=== PATIENT | female | born 1985 | race Caucasian/White ===

== ENCOUNTER 2023-04-17 12:23 | Inpatient (IN) | payer OTHER ==
[~2023-04-17] VITALS: Ht 165.1 cm; Wt 72.7 kg
[2023-04-17] VITALS (20 sets, daily range): BP systolic 105–144; BP diastolic 62–98; TEMP 97.1–98.3; O2SAT 99–100
[2023-04-17] MEDS: PRENATAL VITAMINS CHEWABLE TABLET PO SCH (09:00)
[2023-04-17] MEDS: DOCUSATE SODIUM 100MG CAPSULE PO SCH ×2 (09:00→20:41)
[2023-04-17] MEDS ORDERED: ZOLO50TA PO (12:50)
[2023-04-17] MEDS ORDERED: ACETAMINOPHEN 650MG SUPP PR ONE (12:55)
[2023-04-17] MEDS ORDERED: ceFAZolin SOD 2 GM in IV 1 EA IV ONE (12:55)
[2023-04-17] MEDS ORDERED: BICITRA 30ML SOLN UDC PO ONE (12:55)
[2023-04-17] MEDS: LR 1,000 ML IV SCH ×2 (12:55→21:37)
[2023-04-17] MEDS ORDERED: AZITHROMYCIN INJ 500 MG, VIAL MATE ADAPTER 1 EACH in NS 250 ML IV ONE (12:55)
[2023-04-17] MEDS ORDERED: ceFAZolin 2 GM/D5W 50 ML IV BAG As Ordered ONE (12:58)
[2023-04-17] MEDS ORDERED: AZITHROMYCIN INJ 500MG VIAL As Ordered ONE (12:59)
[2023-04-17] MEDS ORDERED: BICITRA 30ML SOLN UDC As Ordered ONE (12:59)
[2023-04-17 13:00] LABS: HEMATOCRIT 33.8 % (36.0-47.0); HEMOGLOBIN 11.9 g/dl (12.0-15.5); MEAN CORPUSCULAR HEMOGLOBIN 33.1 pg (27.0-33.0); MEAN CORPUSCULAR HGB CONC 35.2 g/dl (32.0-36.5); MEAN CORPUSCULAR VOLUME 93.9 fl (80.0-96.0); WHITE BLOOD COUNT 22.1 10^3/uL (4.0-10.0)
[2023-04-17 13:27] LABS: PLATELET COUNT, AUTOMATED 56 10^3/uL (150-450)
[2023-04-17 13:35] LABS: ALBUMIN 2.8 G/DL (3.2-5.2); BILIRUBIN,TOTAL 1.5 MG/DL (0.3-1.2); CALCIUM LEVEL 10.2 MG/DL (8.5-10.1); CREATININE FOR GFR 1.23 MG/DL (0.55-1.30); GLOMERULAR FILTRATION RATE 52.9 (>60); LDH LACTATE DEHYDROGENASE 694 U/L (120-246); POTASSIUM SERUM 4.5 MMOL/L (3.5-5.1); TOTAL PROTEIN 5.5 G/DL (5.7-8.2)
[2023-04-17] MEDS ORDERED: ROCURONIUM BROMIDE 50MG/5ML VIAL As Ordered ONE (13:35)
[2023-04-17] MEDS ORDERED: ONDANSETRON 4MG 2ML VIAL As Ordered ONE (13:35)
[2023-04-17] MEDS ORDERED: KETOROLAC 60MG 2ML VIAL As Ordered ONE (13:35)
[2023-04-17] MEDS ORDERED: LIDOCAINE 2% 100MG/5ML SDV (FOR ANES.) As Ordered ONE (13:35)
[2023-04-17] MEDS ORDERED: fentaNYL 100 MCG/2 ML INJECTION As Ordered ONE ×2 (13:35→13:55)
[2023-04-17] MEDS ORDERED: propofoL 200 MG/20 ML VIAL As Ordered ONE (13:35)
[2023-04-17] MEDS ORDERED: ACETAMINOPHEN 1000MG 100ML IV BAG As Ordered ONE (13:35)
[2023-04-17] MEDS ORDERED: SUGAMMADEX SODIUM 500 MG/5 ML VIAL (BRIDION) As Ordered ONE (13:35)
[2023-04-17] MEDS ORDERED: MIDAZOLAM INJ 2MG/2ML VIAL As Ordered ONE (13:35)
[2023-04-17 13:36] LABS: ALT/SGPT < 9 U/L (7.0-40); AST/SGOT 44 U/L (<34); BILIRUBIN,TOTAL 1.6 MG/DL (0.3-1.2); CREATININE FOR GFR 1.25 MG/DL (0.55-1.30); GLOMERULAR FILTRATION RATE 51.9 (>60)
[2023-04-17 13:45] LABS: URIC ACID 4.3 MG/DL (3.1-7.8)
[2023-04-17] MEDS ORDERED: TRANEXAMIC ACID 100 MG/ML 10ML VIAL As Ordered ONE (13:56)
[2023-04-17] MEDS ORDERED: PHENYLephrine 500MCG 5ML (100MCG/ML) SYRINGE As Ordered ONE (13:56)
[2023-04-17] MEDS ORDERED: OXYTOCIN DRIP 30 UNITS in IV 1 EA IV SCH ×2 (14:15→18:30)
[2023-04-17] MEDS ORDERED: SIMETHICONE 80MG CHEW TAB PO PRN (14:15)
[2023-04-17] MEDS ORDERED: ONDANSETRON 4MG 2ML VIAL IV PRN (14:15)
[2023-04-17] MEDS ORDERED: RHOGAM 300MCG (1500IU) INJ IM SCH (14:15)
[2023-04-17] MEDS: MAG Sulf (OBGYN) 20GM/500ML 20,000 MG in IV 1 EA IV SCH (15:00)
[2023-04-17 16:46] LABS: BASO % 0.1 % (0.0-1.0); HEMATOCRIT 24.1 % (36.0-47.0); LYMPH # 0.5 10^3/uL (1.5-5.0); LYMPH % 2.2 % (24.0-44.0); MEAN CORPUSCULAR VOLUME 94.1 fl (80.0-96.0); MONO # 0.6 10^3/uL (0.0-0.8); MONO % 2.7 % (2.0-8.0); NEUTROPHILS # 19.6 10^3/uL (1.5-8.5); NEUTROPHILS % 94.1 % (36.0-66.0); RED BLOOD COUNT 2.56 10^6/uL (4.00-5.40); WHITE BLOOD COUNT 20.8 10^3/uL (4.0-10.0)
[2023-04-17 17:03] LABS: HEMOGLOBIN 8.2 g/dl (12.0-15.5)
[2023-04-17 17:04] LABS: PLATELET COUNT, AUTOMATED 44 10^3/uL (150-450)
[2023-04-17 17:06] LABS: URIC ACID 3.9 MG/DL (3.1-7.8)
[2023-04-17 17:08] LABS: LDH LACTATE DEHYDROGENASE 447 U/L (120-246)
[2023-04-17 17:12] LABS: INR 1.88
[2023-04-17 17:14] LABS: PARTIAL THROMBOPLASTIN TIME 31.2 SECONDS (24.8-34.2)
[2023-04-17 17:35] LABS: D-DIMER QUANT > 20.00 ug/mL (<0.5)
[2023-04-17] MEDS: PERCOCET 5MG/325MG TAB PO PRN ×2 (17:35→22:19)
[2023-04-17 17:36] LABS: HIV 1&2 SCREEN NEGATIVE (NEGATIVE)
[2023-04-17 17:41] LABS: ALT/SGPT 9 U/L (7.0-40); AST/SGOT 31 U/L (<34); BILIRUBIN,TOTAL 0.7 MG/DL (0.3-1.2); CREATININE FOR GFR 1.14 MG/DL (0.55-1.30); GLOMERULAR FILTRATION RATE 57.7 (>60)
[2023-04-17 17:57] LABS: FIBRINOGEN < 60 MG/DL (268-480)
[2023-04-17] MEDS ORDERED: fentaNYL 100 MCG/2 ML INJECTION IV PRN (18:45)
[2023-04-17 18:49] LABS: BASO % 0.1 % (0.0-1.0); LYMPH # 0.6 10^3/uL (1.5-5.0); LYMPH % 2.7 % (24.0-44.0); MEAN CORPUSCULAR HEMOGLOBIN 31.7 pg (27.0-33.0); MEAN CORPUSCULAR VOLUME 93.2 fl (80.0-96.0); MONO % 4.6 % (2.0-8.0); NEUTROPHILS # 20.5 10^3/uL (1.5-8.5); NEUTROPHILS % 91.8 % (36.0-66.0); RED BLOOD COUNT 3.22 10^6/uL (4.00-5.40); WHITE BLOOD COUNT 22.3 10^3/uL (4.0-10.0)
[2023-04-17 18:53] LABS: HEMOGLOBIN 10.2 g/dl (12.0-15.5)
[2023-04-17 18:54] LABS: PLATELET COUNT, AUTOMATED 64 10^3/uL (150-450)
[2023-04-17 19:04] LABS: INR 1.37; PROTHROMBIN TIME 16.4 SECONDS (12.5-14.5)
[2023-04-17] MEDS ORDERED: SERTRALINE HCL 50 MG TAB PO SCH (21:00)
[2023-04-17 21:04] LABS: INR 1.26; PROTHROMBIN TIME 15.4 SECONDS (12.5-14.5)
[2023-04-17 21:57] LABS: BASO % 0.1 % (0.0-1.0); HEMATOCRIT 29.8 % (36.0-47.0); HEMOGLOBIN 10.3 g/dl (12.0-15.5); LYMPH # 0.8 10^3/uL (1.5-5.0); LYMPH % 4.3 % (24.0-44.0); MEAN CORPUSCULAR HGB CONC 34.6 g/dl (32.0-36.5); MEAN CORPUSCULAR VOLUME 89.8 fl (80.0-96.0); NEUTROPHILS % 89.6 % (36.0-66.0); RED BLOOD COUNT 3.32 10^6/uL (4.00-5.40)
[2023-04-17 21:59] LABS: PLATELET COUNT, AUTOMATED 53 10^3/uL (150-450)
[2023-04-17 22:07] LABS: INR 1.27; PROTHROMBIN TIME 15.5 SECONDS (12.5-14.5)
[2023-04-17 22:23] LABS: CALCIUM LEVEL 7.7 MG/DL (8.5-10.1); CREATININE FOR GFR 1.12 MG/DL (0.55-1.30); GLOMERULAR FILTRATION RATE 58.9 (>60)
[2023-04-18] VITALS (17 sets, daily range): BP systolic 108–138; BP diastolic 56–81; TEMP 96.5–97.8; O2SAT 98–100
[2023-04-18 00:13] LABS: BASO % 0.1 % (0.0-1.0); HEMATOCRIT 27.8 % (36.0-47.0); HEMOGLOBIN 9.7 g/dl (12.0-15.5); LYMPH # 1.2 10^3/uL (1.5-5.0); LYMPH % 6.4 % (24.0-44.0); MEAN CORPUSCULAR HEMOGLOBIN 31.3 pg (27.0-33.0); MEAN CORPUSCULAR HGB CONC 34.9 g/dl (32.0-36.5); MEAN CORPUSCULAR VOLUME 89.7 fl (80.0-96.0); MONO # 1.2 10^3/uL (0.0-0.8); MONO % 6.5 % (2.0-8.0); NEUTROPHILS % 86.1 % (36.0-66.0); WHITE BLOOD COUNT 18.6 10^3/uL (4.0-10.0)
[2023-04-18 00:15] LABS: PLATELET COUNT, AUTOMATED 52 10^3/uL (150-450)
[2023-04-18] MEDS ORDERED: CALCIUM GLUCONATE 1,000 MG in D5W MINI-BAG PLUS 100 ML IV ONE (01:00)
[2023-04-18] MEDS: LR 1,000 ML IV SCH ×2 (02:41→14:37)
[2023-04-18] MEDS: MAG Sulf (OBGYN) 20GM/500ML 20,000 MG in IV 1 EA IV SCH (03:17)
[2023-04-18] MEDS: PERCOCET 5MG/325MG TAB PO PRN ×3 (04:23→21:03)
[2023-04-18 04:35] LABS: HEMATOCRIT 23.3 % (36.0-47.0); HEMOGLOBIN 8.4 g/dl (12.0-15.5); MEAN CORPUSCULAR HEMOGLOBIN 31.5 pg (27.0-33.0); MEAN CORPUSCULAR HGB CONC 36.1 g/dl (32.0-36.5); MEAN CORPUSCULAR VOLUME 87.3 fl (80.0-96.0); RED BLOOD COUNT 2.67 10^6/uL (4.00-5.40); WHITE BLOOD COUNT 16.5 10^3/uL (4.0-10.0)
[2023-04-18 04:36] LABS: PLATELET COUNT, AUTOMATED 55 10^3/uL (150-450)
[2023-04-18 05:09] LABS: BLOOD UREA NITROGEN 14 MG/DL (9-23); CALCIUM LEVEL 7.4 MG/DL (8.5-10.1); CARBON DIOXIDE LEVEL 20 MMOL/L (20-31); CHLORIDE LEVEL 103 MMOL/L (98-107); CREATININE FOR GFR 0.99 MG/DL (0.55-1.30); GLOMERULAR FILTRATION RATE > 60.0 (>60); GLUCOSE, FASTING 104 MG/DL (60-100); POTASSIUM SERUM 4.5 MMOL/L (3.5-5.1); SODIUM LEVEL 129 MMOL/L (136-145)
[2023-04-18 09:29] LABS: HEMATOCRIT 23.5 % (36.0-47.0); MEAN CORPUSCULAR HEMOGLOBIN 30.5 pg (27.0-33.0); MEAN CORPUSCULAR VOLUME 89.7 fl (80.0-96.0); RED BLOOD COUNT 2.62 10^6/uL (4.00-5.40); WHITE BLOOD COUNT 15.2 10^3/uL (4.0-10.0)
[2023-04-18 09:39] LABS: PLATELET COUNT, AUTOMATED 55 10^3/uL (150-450)
[2023-04-18] MEDS: DOCUSATE SODIUM 100MG CAPSULE PO SCH ×2 (10:02→21:02)
[2023-04-18] MEDS: PRENATAL VITAMINS CHEWABLE TABLET PO SCH (10:02)
[2023-04-18 22:17] LABS: HEMOGLOBIN 7.4 g/dl (12.0-15.5); MEAN CORPUSCULAR HEMOGLOBIN 31.1 pg (27.0-33.0); MEAN CORPUSCULAR HGB CONC 35.2 g/dl (32.0-36.5); MEAN CORPUSCULAR VOLUME 88.2 fl (80.0-96.0); RED BLOOD COUNT 2.38 10^6/uL (4.00-5.40); WHITE BLOOD COUNT 13.1 10^3/uL (4.0-10.0)
[2023-04-18 22:19] LABS: PLATELET COUNT, AUTOMATED 66 10^3/uL (150-450)
[2023-04-18 22:41] LABS: BLOOD UREA NITROGEN 11 MG/DL (9-23); CALCIUM LEVEL 7.5 MG/DL (8.5-10.1); CARBON DIOXIDE LEVEL 25 MMOL/L (20-31); CHLORIDE LEVEL 105 MMOL/L (98-107); CREATININE FOR GFR 0.81 MG/DL (0.55-1.30); GLOMERULAR FILTRATION RATE > 60.0 (>60); GLUCOSE, FASTING 121 MG/DL (60-100); POTASSIUM SERUM 3.8 MMOL/L (3.5-5.1); SODIUM LEVEL 135 MMOL/L (136-145)
[2023-04-19] VITALS (13 sets, daily range): BP systolic 119–167; BP diastolic 72–92; TEMP 97.7–98.9; O2SAT 97–100
[2023-04-19] MEDS: PERCOCET 5MG/325MG TAB PO PRN ×4 (03:15→18:40)
[2023-04-19] MEDS ORDERED: diphenhydrAMINE 50MG/ML VIAL IM STA (06:27)
[2023-04-19] MEDS ORDERED: MEASLES,MUMPS,RUBELLA VACCINE INJ (MMR-II) SC.IMMUN ONE (09:00)
[2023-04-19] MEDS ORDERED: ENOXAPARIN 40MG/0.4ML SYRINGE (J1650 PER 10MG) SC SCH (09:00)
[2023-04-19] MEDS: DOCUSATE SODIUM 100MG CAPSULE PO SCH ×2 (09:25→21:08)
[2023-04-19] MEDS: PRENATAL VITAMINS CHEWABLE TABLET PO SCH (09:25)
[2023-04-19] MEDS: SERTRALINE HCL 50 MG TAB PO SCH (09:25)
[2023-04-19 10:11] LABS: HEMATOCRIT 25.6 % (36.0-47.0); HEMOGLOBIN 8.7 g/dl (12.0-15.5); MEAN CORPUSCULAR HEMOGLOBIN 29.9 pg (27.0-33.0); RED BLOOD COUNT 2.91 10^6/uL (4.00-5.40); WHITE BLOOD COUNT 14.2 10^3/uL (4.0-10.0)
[2023-04-19 10:12] LABS: PLATELET COUNT, AUTOMATED 63 10^3/uL (150-450)
[2023-04-19 10:46] LABS: BLOOD UREA NITROGEN 12 MG/DL (9-23); CALCIUM LEVEL 7.7 MG/DL (8.5-10.1); CARBON DIOXIDE LEVEL 26 MMOL/L (20-31); CHLORIDE LEVEL 108 MMOL/L (98-107); CREATININE FOR GFR 0.74 MG/DL (0.55-1.30); GLOMERULAR FILTRATION RATE > 60.0 (>60); GLUCOSE, FASTING 97 MG/DL (60-100); POTASSIUM SERUM 3.9 MMOL/L (3.5-5.1); SODIUM LEVEL 139 MMOL/L (136-145)
[2023-04-19] MEDS: NEOSPORIN TOP OINT 15GM TOP PRN (21:09)
[2023-04-19 23:15] LABS: HEMATOCRIT 23.8 % (36.0-47.0); HEMOGLOBIN 8.1 g/dl (12.0-15.5); MEAN CORPUSCULAR HEMOGLOBIN 30.5 pg (27.0-33.0); MEAN CORPUSCULAR VOLUME 89.5 fl (80.0-96.0); RED BLOOD COUNT 2.66 10^6/uL (4.00-5.40); WHITE BLOOD COUNT 11.5 10^3/uL (4.0-10.0)
[2023-04-19 23:27] LABS: PLATELET COUNT, AUTOMATED 75 10^3/uL (150-450)
[2023-04-19 23:42] LABS: BLOOD UREA NITROGEN 9 MG/DL (9-23); CALCIUM LEVEL 7.8 MG/DL (8.5-10.1); CARBON DIOXIDE LEVEL 28 MMOL/L (20-31); CHLORIDE LEVEL 109 MMOL/L (98-107); CREATININE FOR GFR 0.73 MG/DL (0.55-1.30); GLOMERULAR FILTRATION RATE > 60.0 (>60); GLUCOSE, FASTING 110 MG/DL (60-100); SODIUM LEVEL 142 MMOL/L (136-145)
[2023-04-20 02:00] VITALS: BP 136/79; O2SAT 97
[2023-04-20 06:00] VITALS: BP 124/84; O2SAT 99
[2023-04-20] MEDS: PRENATAL VITAMINS CHEWABLE TABLET PO SCH (08:18)
[2023-04-20] MEDS: DOCUSATE SODIUM 100MG CAPSULE PO SCH (08:18)
[2023-04-20] MEDS: SERTRALINE HCL 50 MG TAB PO SCH (08:19)
[2023-04-20] MEDS: NEOSPORIN TOP OINT 15GM TOP PRN (08:26)
[2023-04-20 10:00] VITALS: BP 137/75; O2SAT 98
[2023-04-20 10:23] LABS: HEMATOCRIT 24.6 % (36.0-47.0); HEMOGLOBIN 8.3 g/dl (12.0-15.5); MEAN CORPUSCULAR HEMOGLOBIN 30.5 pg (27.0-33.0); MEAN CORPUSCULAR HGB CONC 33.7 g/dl (32.0-36.5); MEAN CORPUSCULAR VOLUME 90.4 fl (80.0-96.0); RED BLOOD COUNT 2.72 10^6/uL (4.00-5.40); WHITE BLOOD COUNT 10.9 10^3/uL (4.0-10.0)
[2023-04-20 10:24] LABS: PLATELET COUNT, AUTOMATED 88 10^3/uL (150-450)
[2023-04-20 10:38] LABS: BLOOD UREA NITROGEN 7 MG/DL (9-23); CALCIUM LEVEL 8.3 MG/DL (8.5-10.1); CARBON DIOXIDE LEVEL 29 MMOL/L (20-31); CHLORIDE LEVEL 108 MMOL/L (98-107); CREATININE FOR GFR 0.71 MG/DL (0.55-1.30); GLOMERULAR FILTRATION RATE > 60.0 (>60); GLUCOSE, FASTING 88 MG/DL (60-100); POTASSIUM SERUM 4.2 MMOL/L (3.5-5.1); SODIUM LEVEL 142 MMOL/L (136-145)
[2023-04-20 14:00] VITALS: BP 142/77; O2SAT 98
[2023-04-20] MEDS ORDERED: COLA100C5 PO (14:05)
[2023-04-20] MEDS ORDERED: PERCOCET PO (14:05)
[2023-04-20] MEDS ORDERED: FERR1TAB8 PO (14:07)
[2023-04-20] MEDS ORDERED: IBUP80TA PO (14:08)
== END 2023-04-20 15:05 | disposition home or self-care (01) | DRG 540 ==
LOC: M LDI 12:23 → M ICU 16:38 → M OBS 04-18 14:39
PROVIDERS: ADMIT Obstetrics & Gynecology; ATTEND Obstetrics & Gynecology
PROC: 30233N1 Transfusion of Nonautologous Red Blood Cells into Peripheral Vein, Percutaneous Approach (ICD-10-PCS; 2023-04-17)
PROC: 30233K1 Transfusion of Nonautologous Frozen Plasma into Peripheral Vein, Percutaneous Approach (ICD-10-PCS; 2023-04-17)
PROC: 30233R1 Transfusion of Nonautologous Platelets into Peripheral Vein, Percutaneous Approach (ICD-10-PCS; 2023-04-17)
PROC: 10D00Z1 Extraction of Products of Conception, Low, Open Approach (ICD-10-PCS; principal; 2023-04-17 14:08)
DX: O14.24 HELLP syndrome, complicating childbirth (principal); D65 Disseminated intravascular coagulation [defibrination syndrome]; O99.12 Other diseases of the blood and blood-forming organs and certain disorders involving the immune mechanism complicating childbirth; D62 Acute posthemorrhagic anemia; E87.1 Hypo-osmolality and hyponatremia; E83.51 Hypocalcemia; Z37.1 Single stillbirth; O99.03 Anemia complicating the puerperium; O45.0 Premature separation of placenta with coagulation defect; Z3A.35 35 weeks gestation of pregnancy; O09.523 Supervision of elderly multigravida, third trimester; O99.285 Endocrine, nutritional and metabolic diseases complicating the puerperium